=== PATIENT | female | born 1950 | race Caucasian/White ===

== ENCOUNTER 2017-02-10 09:55 | Inpatient (IN) | payer MEDICARE, OTHER ==
[2017-02-10 11:02] LABS: Hematocrit 45 % (35-47); Hemoglobin 14.7 g/dl (12.0-16.0); Mean Corpuscular HGB Conc 33 g/dl (31-36); Mean Corpuscular Hemoglobin 30 pg (27-31); Mean Corpuscular Volume 92 fL (80-97); Mean Platelet Volume 8 um3 (7.4-10.4); Red Blood Count 4.87 10^6/ul (4.0-5.4); Red Cell Distribution Width 13 % (10.5-15); White Blood Count 14.6 10^3/ul (3.5-10.8)
[2017-02-10 11:18] LABS: Albumin 4.6 g/dL (3.2-5.2); BUN/Creatinine Ratio 19.5 (8-20); C Reactive Protein 2.24 mg/L (< 5.00); Calcium 10.4 mg/dL (8.6-10.3); EGFR African American 95.9 (>60); EGFR Non-African American 74.5 (>60); Globulin 3.9 g/dL (2-4); Magnesium 1.9 mg/dL (1.9-2.7); Total Bilirubin 0.6 mg/dL (0.2-1.0); Total Protein 8.5 g/dL (6.4-8.9)
--- NOTE | 2017-02-10 11:21 | RAD ---
HISTORY: Back pain, vomiting COMPARISONS: February 06, 2010 VIEWS:1: Single frontal portable view of the chest at 10:55 AM. The right costophrenic angle is partially cut off. FINDINGS: LINES AND TUBES: None. CARDIOMEDIASTINAL SILHOUETTE: The cardiomediastinal silhouette is normal for portable technique. PLEURA: The costophrenic angles are sharp. No pleural abnormalities are noted. LUNG PARENCHYMA: The lungs are clear. ABDOMEN: The upper abdomen is clear. There is no subphrenic gas. BONES AND SOFT TISSUES: No bone or soft tissue abnormalities are noted. IMPRESSION: NO ACTIVE CARDIOPULMONARY DISEASE.
[2017-02-10] MEDS: NS 0.9% 1000 ML* 1,000 ML IV SCH ×2 (11:23→16:12)
[2017-02-10] MEDS ORDERED: Ondansetron INJ* 2 MG/ML VIAL IV ONE ×2 (11:25→12:15)
[2017-02-10] MEDS ORDERED: NS 0.9% 1000 ML* 2,000 ML IV ONE (11:25)
[2017-02-10] MEDS ORDERED: Diltiazem IV* 5 MG/ML 5 ML VIAL (for loading dose/IV Push) (25 MG) IV SLOW PU ONE ×2 (11:28→13:45)
[2017-02-10] MEDS ORDERED: Morphine INJ* 4 MG/ML 1 ML SYRINGE IV ONE (11:36)
[2017-02-10] MEDS ORDERED: Iohexol 300* (CONTRAST) 10 ML SDV IV ONE (11:41)
[2017-02-10 11:49] LABS: TSH (Thyroid Stimulating Horm) 0.51 mcIU/mL (0.34-5.60)
[2017-02-10 12:57] LABS: Urine Bacteria Absent (Absent); Urine Bilirubin Negative (Negative); Urine Glucose 1+(50 mg/dL) (Negative); Urine Nitrite Negative (Negative)
--- NOTE | 2017-02-10 13:18 | RAD ---
INDICATION: Abdominal and back pain. History of cholelithiasis. Vomiting. COMPARISON: Right upper quadrant sonogram February 28, 2014 TECHNIQUE: Axial source images were obtained from the hemidiaphragms to the symphysis pubis following administration of oral and intravenous contrast. 80 mL Omnipaque 300 was utilized. Coronal and sagittal reconstructed images were acquired. Lung bases: The lung bases are clear. Liver: The liver is normal in size. There are no masses. There is no ductal dilatation. Gallbladder: The gallbladder wall appears mildly edematous and there is a small amount pericholecystic fluid. There are multiple gallstones with one gallstone impacted in the neck of the gallbladder. Spleen: The spleen is normal in size. There are no masses. Pancreas: There is no focal pancreatic mass or ductal dilatation. Adrenal glands: There is no evidence of adrenal mass. Kidneys: The kidneys are normal in size and position. There are prompt nephrograms and there is prompt excretion bilaterally. There are no renal parenchymal masses. There is no evidence of nephrolithiasis. Adenopathy: There is no evidence of adenopathy by size criteria. Fluid collections: There are no free or localized fluid collections. Vessels:There are no significant atherosclerotic changes involving the aorta. There is no focal aneurysm. The iliac vessels are normal in caliber. The IVC appears normal. GI tract: There are no acute CT bowel findings. There is no obstruction. The stomach and small bowel appear normal. The lower GI tract is normal. The cecum, ileocecal valve, and terminal ileum appear normal. The appendix is visualized and appear normal. Pelvic organs: The uterus and adnexa appear normal Bladder: There are no bladder masses. Abdominal and pelvic soft tissues: The extraperitoneal abdominal and pelvic soft tissues appear normal.. Osseous structures: There are no acute osseous findings. There is spondylitic change most prominent about the thoracolumbar junction. There is facet overgrowth at L5-S1. Other: None IMPRESSION: 1. Cholelithiasis with CT findings suggestive of mild acute cholecystitis. One of the calculi appears impacted in the neck. 2. Minor degenerative change of the thoracolumbar and lower lumbar spine
[2017-02-10] MEDS ORDERED: Diltiazem DRIP* 100 MG/100 ML ADDV.BAG IVPB ONE (13:40)
[2017-02-10] MEDS ORDERED: Diltiazem DRIP* 100 MG/100 ML ADDV.BAG IVPB SCH (13:45)
[2017-02-10] MEDS ORDERED: Albuterol 2.5 MG/3 ML NEB.SOL* (0.083%) INH PRN (13:46)
[2017-02-10] MEDS ORDERED: Heparin DRIP 25,000 UNITS(*) 25,000 UNITS/500 ML BAG IVPB SCH (14:00)
[2017-02-10] MEDS ORDERED: Heparin VIAL(*) 5000 UNITS/ML VIAL (FIVE THOUSAND) IV SCH (14:00)
[2017-02-10] MEDS: Morphine INJ* 4 MG/ML 1 ML SYRINGE IV PRN (14:07)
[2017-02-10] MEDS: Ondansetron INJ* 2 MG/ML VIAL IV PRN (14:08)
[2017-02-10] MEDS: Piperac/Tazob 3.375 gm in NS* 3.375 GM/100 ML BAG IVPB SCH ×2 (14:27→22:31)
--- NOTE | 2017-02-10 15:03 | ED ---
Layla Duke Auryana, scribed for Elijah Cano MD on 02/10/17 at 1148 . Back Pain - HPI Summary HPI Summary: 66 year old female presents with severe back pain starting last night at 09:00 PM worse since 12:30 AM. She states the back pain was a 9/10 and then has nausea and vomiting. The back pain is located in the middle of the back and radiates up and out- currently 8.5/10. She states that she also has chills - patient reports normal, loose stools and arrhythmias (140's). She denies any fevers (fever on arrival to ED), chest pain, SOB, or calf pain/edema. 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 FHx of CHF. PMHx is significant for asthma, arrhythmia, Sjogrens disease, inguinal hernia, and D&C. No PMHx of appendectomy and cholecystectomy. - History of Current Complaint Chief Complaint: EDBackInjuryPain Stated Complaint: BACK PAIN/VOMITING Time Seen by Provider: 02/10/17 10:35 Hx Obtained From: Patient Onset/Duration: Sudden Onset - 12:30 of vomiting, Gradual Onset - of severe back pain, Still Present, Worse Since - 12:30 Onset/Duration: Started Hours Ago - started last night at 09:00 PM Timing: Constant Back Pain Location: Is Discrete @ - mid back Severity Initially: Moderate Severity Currently: Moderate Pain Intensity: 8 Pain Scale Used: 0-10 Numeric Associated Signs And Symptoms: Positive: Fever, Other - vomiting/nausea, loose stools, arrythmias - Allergies/Home Medications Allergies/Adverse Reactions: Allergies Allergy/AdvReac Type Severity Reaction Status Date / Time No Known Allergies Allergy Verified 01/19/14 21:57 PMH/Surg Hx/FS Hx/Imm Hx Respiratory History: Reports: Hx Asthma Musculoskeletal History: Denies: Hx Osteoporosis - Surgical History Surgery Procedure, Year, and Place: Hernia repair as a child. Tonsils and adenoids. D+C Infectious Disease History: No Infectious Disease History: Reports: Traveled Outside the [place] in Last 30 Days - [place] - Family History Known Family History: Positive: Cardiac Disease, Hypertension, Other - CHF - Social History Occupation: Retired Lives: With Family Alcohol Use: Daily Alcohol Amount: glass wine Substance Use Type: Reports: None Smoking Status (MU): Never Smoked Tobacco Review of Systems Positive: Fever Eyes: Negative ENT: Negative Positive: Palpitations - arrythmias. Negative: Chest Pain Respiratory: Negative Negative: Shortness Of Breath Positive: Vomiting, Diarrhea - loose stools, Nausea Genitourinary: Negative Positive: Other - back pain Skin: Negative Neurological: Negative Psychological: Normal All Other Systems Reviewed And Are Negative: Yes Physical Exam Triage Information Reviewed: Yes Vital Signs On Initial Exam: Initial Vitals Temp Pulse Resp BP Pulse Ox 100.0 F 60 18 120/63 100 02/10/17 10:11 02/10/17 10:11 02/10/17 10:11 02/10/17 10:11 02/10/17 10:11 Vital Signs Reviewed: Yes Appearance: Positive: Well-Appearing, Pain Distress - mild Skin: Positive: Warm, Skin Color Reflects Adequate Perfusion, Dry Head/Face: Positive: Normal Head/Face Inspection Eyes: Positive: EOMI, TOMAS ENT: Positive: Normal ENT inspection Neck: Positive: Supple, Nontender Respiratory/Lung Sounds: Positive: Clear to Auscultation, Breath Sounds Present Cardiovascular: Positive: Tachycardia - irregularly irregular Abdomen Description: Positive: Soft, Other: - minimal tenderness in the upper ABD Bowel Sounds: Positive: Present Musculoskeletal: Positive: Normal, Strength/ROM Intact, Other - no tenderness at the mid back to palpation Neurological: Positive: Normal, Sensory/Motor Intact, Alert, Oriented to Person Place, Time Psychiatric: Positive: Normal, Affect/Mood Appropriate - [place] Coma Scale Coma Scale Total: 15 Diagnostics - Vital Signs Vital Signs Temp Pulse Resp BP Pulse Ox 02/10/17 11:07 145 20 169/70 100 02/10/17 11:00 75 18 170/87 98 02/10/17 10:59 73 22 178/145 99 02/10/17 10:35 84 100 02/10/17 10:33 160/79 02/10/17 10:11 100.0 F 63 18 120/63 100 - Laboratory Lab Results: Lab Results 02/10/17 02/10/17 02/10/17 Range/Units 10:45 10:45 10:45 WBC 14.6 H (3.5-10.8) 10^3/ul RBC 4.87 (4.0-5.4) 10^6/ul Hgb 14.7 (12.0-16.0) g/dl Hct 45 (35-47) % MCV 92 (80-97) fL MCH 30 (27-31) pg MCHC 33 (31-36) g/dl RDW 13 (10.5-15) % Plt Count 263 (150-450) 10^3/ul MPV 8 (7.4-10.4) um3 Neut % (Auto) 93.1 H (38-83) % Lymph % (Auto) 4.0 L (25-47) % [place] % (Auto) 2.6 (1-9) % Eos % (Auto) 0.1 (0-6) % Baso % (Auto) 0.2 (0-2) % Absolute Neuts (auto) 13.6 H (1.5-7.7) 10^3/ul Absolute Lymphs (auto) 0.6 L (1.0-4.8) 10^3/ul Absolute Monos (auto) 0.4 (0-0.8) 10^3/ul Absolute Eos (auto) 0 (0-0.6) 10^3/ul Absolute Basos (auto) 0 (0-0.2) 10^3/ul Absolute Nucleated RBC 0 10^3/ul Nucleated RBC % 0 INR (Anticoag Therapy) 0.88 L (0.89-1.11) APTT 32.1 (26.0-36.3) seconds D-Dimer, Quantitative < 200 (Less Than 230) ng/mL Sodium 134 (133-145) mmol/L Potassium 4.0 (3.5-5.0) mmol/L Chloride 98 L (101-111) mmol/L Carbon Dioxide 22 (22-32) mmol/L Anion Gap 14 H (2-11) mmol/L BUN 15 (6-24) mg/dL Creatinine 0.77 (0.51-0.95) mg/dL Est GFR ( Amer) 95.9 (>60) Est GFR (Non-Af Amer) 74.5 (>60) BUN/Creatinine Ratio 19.5 (8-20) Glucose 131 H (70-100) mg/dL Calcium 10.4 H (8.6-10.3) mg/dL Magnesium 1.9 (1.9-2.7) mg/dL Total Bilirubin 0.60 (0.2-1.0) mg/dL AST 25 (13-39) U/L ALT 25 (7-52) U/L Alkaline Phosphatase 73 (34-104) U/L Total Creatine Kinase 56 (10-223) U/L CK-MB (CK-2) 2.3 (0.6-6.3) ng/mL Troponin I 0.00 (<0.04) ng/mL C-Reactive Protein 2.24 (< 5.00) mg/L B-Natriuretic Peptide ( - 100) pg/mL Total Protein 8.5 (6.4-8.9) g/dL Albumin 4.6 (3.2-5.2) g/dL Globulin 3.9 (2-4) g/dL Albumin/Globulin Ratio 1.2 (1-3) Lipase 23 (11.0-82.0) U/L TSH Pending 02/10/17 Range/Units 10:45 WBC (3.5-10.8) 10^3/ul RBC (4.0-5.4) 10^6/ul Hgb (12.0-16.0) g/dl Hct (35-47) % MCV (80-97) fL MCH (27-31) pg MCHC (31-36) g/dl RDW (10.5-15) % Plt Count (150-450) 10^3/ul MPV (7.4-10.4) um3 Neut % (Auto) (38-83) % Lymph % (Auto) (25-47) % [place] % (Auto) (1-9) % Eos % (Auto) (0-6) % Baso % (Auto) (0-2) % Absolute Neuts (auto) (1.5-7.7) 10^3/ul Absolute Lymphs (auto) (1.0-4.8) 10^3/ul Absolute Monos (auto) (0-0.8) 10^3/ul Absolute Eos (auto) (0-0.6) 10^3/ul Absolute Basos (auto) (0-0.2) 10^3/ul Absolute Nucleated RBC 10^3/ul Nucleated RBC % INR (Anticoag Therapy) (0.89-1.11) APTT (26.0-36.3) seconds D-Dimer, Quantitative (Less Than 230) ng/mL Sodium (133-145) mmol/L Potassium (3.5-5.0) mmol/L Chloride (101-111) mmol/L Carbon Dioxide (22-32) mmol/L Anion Gap (2-11) mmol/L BUN (6-24) mg/dL Creatinine (0.51-0.95) mg/dL Est GFR ( Amer) (>60) Est GFR (Non-Af Amer) (>60) BUN/Creatinine Ratio (8-20) Glucose (70-100) mg/dL Calcium (8.6-10.3) mg/dL Magnesium (1.9-2.7) mg/dL Total Bilirubin (0.2-1.0) mg/dL AST (13-39) U/L ALT (7-52) U/L Alkaline Phosphatase (34-104) U/L Total Creatine Kinase (10-223) U/L CK-MB (CK-2) (0.6-6.3) ng/mL Troponin I (<0.04) ng/mL C-Reactive Protein (< 5.00) mg/L B-Natriuretic Peptide 63 ( - 100) pg/mL Total Protein (6.4-8.9) g/dL Albumin (3.2-5.2) g/dL Globulin (2-4) g/dL Albumin/Globulin Ratio (1-3) Lipase (11.0-82.0) U/L TSH Result Diagrams: 02/10/17 10:45 02/10/17 10:45 Lab Statement: Any lab studies that have been ordered have been reviewed, and results considered in the medical decision making process. - Radiology CXR Xray Interpretation: No Acute Changes Radiology Interpretation Completed By: Radiologist - CT ABD/PEL CT Interpretation: Positive (See Comments) - IMPRESSION: 1. Cholelithiasis with CT findings suggestive of mild acute cholecystitis. One of the calculi appears impacted in the neck. 2. Minor degenerative change of the thoracolumbar and lower lumbar spine CT Interpretation Completed By: Radiologist - EKG 10:26 EKG Interpretation: rapid a-fib @ 138 BPM, diffuse depressed ST segment Back Pain Course/Dx - Course Assessment/Plan: ADMIT HOSPITALIST STABLE. - Diagnoses Provider Diagnoses: Rapid atrial fibrillation, Abdominal pain, Back pain, Cholecystitis - Provider Notifications Discussed Care of Patient With: Dr. Dickens Time Discussed With Above Provider: 12:55 - agrees to admit - Critical Care Time Critical Care Time: 30-74 min Discharge - Discharge Plan Condition: Stable Disposition: ADMITTED TO [facility] documentation as recorded by the Layla ramos Auryana accurately reflects the service I personally performed and the decisions made by me, Elijah Cano MD.
--- NOTE | 2017-02-10 15:24 | HP ---
HISTORY AND PHYSICAL:* ADDENDUM: Ms. De La Torre is a 66-year-old female with history of asthma, who presented with nausea, vomiting, and abdominal pain. The patient was noted to be in atrial fibrillation with rapid ventricular response. Also her CT shows cholecystitis with an impacted gallbladder neck stone. The patient is going to be placed in the intensive care unit for further monitoring and treatment of her atrial fibrillation. Surgery is also going to be asked to assist with further management of the patient's cholecystitis and impacted gallbladder neck stone. For further details of the patient's presentation and plan, please see history and physical dictated by Jose Antonio Mejia on 02/10/17, with which I agree. [id number]/[facility] #: [id number] MTDD
[2017-02-10] MEDS ORDERED: PROCHLORPERAZINE INJ 5 MG/ML 2 ML VIAL ONE (15:39)
--- NOTE | 2017-02-10 16:00 | CONSULT ---
Subjective Date of Service: 02/10/17 Interval History: Date of admission and consult 02/10/[address] Grubbs Service: Hospitalist CC: Back pain, palpitations, vomiting Reason for consult: Atrial fibrillation in setting of cholecystitis GABRIELA De La Torre is a 66 year old woman admitted with with back pain starting last night associated with vomiting multiple times She started with palpitations this morning and was found with rapid atrial fibrillation symptomatic starting this morning. This is in the setting of cholecystitis. She had chills without fever. She denies any prior similar episodes. She denies any history of CHF, HTN, DM, CVA/TIA or vascular disease. She denies any prior arrhythmias. Baseline patient walks briskly most day of the week and there is no chest discomfort or dyspnea. No edema, orthopnea or recent syncope. PAST MEDICAL HISTORY: Significant for: 1. Asthma. 2. Sjogren's. 3. Raynaud's. PAST SURGICAL HISTORY: 1. She has had tonsillectomy. 2. Hernia repair. 3. D and C. ALLERGIES TO MEDICATIONS: Include no known drug allergies. FAMILY HISTORY: Mother had a history of cardiac arrhythmia and oral cancer. Her father at age 98 of CHF. SOCIAL HISTORY: She does not smoke. Rarely drinks alcohol. She is . Surrogate decision maker is her , Bipin who is present at bedside. Medications Active Medications: Acetaminophen (Tylenol Tab*) 650 mg PO Q4H PRN PRN Reason: FEVER/PAIN Albuterol (Ventolin 2.5 Mg/3 Ml Neb.[place]*) 2.5 mg INH Q2H PRN PRN Reason: SOB/WHEEZING Heparin Sodium (Porcine) (Heparin Vial(*)) 0 units IV .PER PROTOCOL INOCENTE PRN Reason: Protocol Sodium Chloride (Ns 0.9% 1000 Ml*) 1,000 mls @ 150 mls/hr IV PER RATE [facility] Last Admin: 02/10/17 11:23 Dose: 150 mls/hr Sodium Chloride (Ns 0.9% 1000 Ml*) 1,000 mls @ 125 mls/hr IV PER RATE [facility] Piperacillin Sod/Tazobactam Sod (Zosyn 3.375 Gm In Ns Premix*) 3.375 gm in 100 mls @ 25 mls/hr IVPB Q8H [facility] Last Admin: 02/10/17 14:27 Dose: 25 mls/hr Diltiazem HCl (Cardizem Iv Advan*) 100 mg in 100 mls @ 5 mls/hr IVPB DAILY INOCENTE Heparin Sodium/Dextrose (Heparin Drip 25,000 Units(*)) 25,000 units in 500 mls @ 0 mls/hr IVPB .PER RATE INOCENTE; Per Protocol PRN Reason: Protocol Mometasone Furoate (Asmanex 220 Mcg Mdi *) 1 puff INH DAILY INOCENTE PRN Reason: Protocol Morphine Sulfate (Morphine Inj (Syringe)*) 4 mg IV Q4H PRN PRN Reason: PAIN Last Admin: 02/10/17 14:07 Dose: 4 mg Ondansetron HCl (Zofran Inj*) 4 mg IV Q6H PRN PRN Reason: NAUSEA Last Admin: 02/10/17 14:08 Dose: 4 mg Prochlorperazine Edisylate (Compazine Inj*) 5 mg IV Q6H PRN PRN Reason: NAUSEA/VOMITING Salmeterol Xinafoate (Serevent Diskus (Nf)) 1 puff INH DAILY INOCENTE PRN Reason: Protocol Home Medications: Mometasone 220 MCG MDI * [Asmanex (NF)] 220 mcg INH DAILY 01/19/14 [History Confirmed 02/10/17] Salmeterol Xinafoate [Serevent Diskus] 50 mcg PO DAILY 01/19/14 [History Confirmed 02/10/17] Review of Systems - Review of Systems Constitutional Symptoms: Negative: Weight Gain, Weight Loss, Weakness, Fatigue, Fever, Night Sweats Dermatology: Negative: Rash, Skin Lesions HEENT: Negative: Change in Hearing, Vertigo, Dental Problems Eyes: Negative: Change in Vision, Double Vision, Eye Pain Thyroid: Positive: Palpitations Negative: Goiter, Thyroid Nodule, Cold Intolerance, Heat Intolerance, Sweatiness, Tremor, Frequent Defecation, Constipation, Primary Hypothyroidism, Primary Hyperthyroidism Pulmonary: Negative: Cough, Sputum, Hemoptysis, Wheezing, Respiratory Distress, Shortness of Breath, COPD, Asthma, Exercise Intolerance Cardiology: Positive: Palpitations Negative: Normal, Chest Pain, Shortness of Breath, Swelling of Ankles, Peripheral Vascular Dis, Edema, Faintness, Syncope, Claudication, Paroxysmal Nocturnal Dyspnea, Orthopnea Gastroenterology: Positive: Abdominal Pain, Nausea, Vomiting Negative: Anorexia, Indigestion, Difficulty Swallowing, Heartburn, Constipation, Diarrhea, Haematemesis, Melena Genital - Urinary: Negative: Dysuria, Hematuria Musculoskeletal: Negative: Joint Pain, Joint Stiffness, Arthritis, Osteoporosis Endocrinology: Negative: Thyroid Problems, Hyperglycemia, Hypoglycemia, Diabetic Foot Ulcers , Calluses, Pituitary Disease Hematologic/Lymphatic: Negative: Anemia, Easy Brusing, Hx Leukemia, Hx Lymphoma, Use of Anticoagulant, Use of Antiplatelet Drugs Neurology: Negative: Diplopia, Dizziness, Change in Balancing, Change in Coordination, Change in Memory, Change in Speech, Change in Sphincter Function Psychiatry: Negative: Depression, Anxiety, Sexual Dysfunction Allergic/Immunologic: Negative: Hx Anaphylaxis, Hx Angioedema, Hx Environmental Allergies, Hx Seasonal Allergies Review of Systems Statement: All other review of systems negative, unless stated above. Objective Vital Signs: Temp Pulse Resp BP Pulse Ox 100.8 F 117 16 135/73 93 02/10/17 15:23 02/10/17 15:23 02/10/17 15:23 02/10/17 15:23 02/10/17 15:23 Appearance: appears in mild pain, not toxic Ears/Nose/Mouth/Throat: Clear Oropharnyx, Mucous Membranes Moist Neck: Trachea Midline Respiratory: Symmetrical Chest Expansion and Respiratory Effort, Clear to Auscultation Cardiovascular: No Edema, - - irregularly irregular, no significant murmur Abdominal: NL Sounds; No Tenderness; No Distention Extremities: No Edema, No Clubbing, Cyanosis Skin: No Rash or Ulcers Neurological: Alert and Oriented x 3 Laboratory Results: 02/10/17 10:45 02/10/17 10:45 INR (Anticoag Therapy) 0.88 (0.89-1.11) L 02/10/17 10:45 APTT 32.1 seconds (26.0-36.3) 02/10/17 10:45 Total Bilirubin 0.60 mg/dL (0.2-1.0) 02/10/17 10:45 AST 25 U/L (13-39) 02/10/17 10:45 ALT 25 U/L (7-52) 02/10/17 10:45 Alkaline Phosphatase 73 U/L (34-104) 02/10/17 10:45 CK-MB (CK-2) 2.3 ng/mL (0.6-6.3) 02/10/17 10:45 B-Natriuretic Peptide 63 pg/mL (-100) 02/10/17 10:45 Total Protein 8.5 g/dL (6.4-8.9) 02/10/17 10:45 Albumin 4.6 g/dL (3.2-5.2) 02/10/17 10:45 Globulin 3.9 g/dL (2-4) 02/10/17 10:45 Albumin/Globulin Ratio 1.2 (1-3) 02/10/17 10:45 TSH 0.51 mcIU/mL (0.34-5.60) 02/10/17 10:45 02/10/17 10:45 Troponin I 0.00 Diagnostic Imaging: CT 02/10/2017 abd/pelvix: cholelithasis with mild cholecystitis CXR 02/10/2017: No active cardiopulmonary disease EKG Data: EKG : NSR, normal EKG EKG 02/10/2017: Rapid atrial fibrillation 140 bpm with minor rate related st/t changes Assessment/Plan Eva De La Torre is a 66-year-old woman who presents with new onset atrial fibrillation symptomatic less than 24 hours in the setting of acute cholecystitis. TTE with hyperdynamic LVEF, normal LA size. Did not convert with diltiazem gtt or total 300 mg IV amiodarone. No CHF, [place], severe valve disease or malignant arrhythmia. > 4 mets functional capacity without symptoms at baseline. - I suggested external electrical cardioversion so we would not have to do a MI or use anticoagulation (< 24 hours, provoked Afib). She declined. - For now would continue diltiazem gtt and adjust as needed for rate control - Continue heparin gtt, stop 6 hours prior to surgery, if still in atrial fibrillation after surgery would restart beparin gtt whenever bleeding risk minimized. - Patient is not high risk for cardiovascular complications for cholecystectomy and can proceed without further cardiac evaluation warranted. We did discuss and she expressed understanding that there is some inherent risk for cardiovascular complications related to anesthesia and surgery and she accepts this risk in favor of the expected benefit the surgery will provide. was present at bedside and expressed understanding as well. - Post-op will need rate control (vs. rhythm control) and oral anticoagulation addressed Thank you for allowing me to participate in the cardiovascular care of this patient. Please do not hesitate to contact me with questions or concerns.
[2017-02-10] MEDS: PROCHLORPERAZINE INJ 5 MG/ML 2 ML VIAL IV PRN (16:12)
[2017-02-10] MEDS ORDERED: Amiodarone 150 MG IVPREMIX* 150 MG/100 ML BAG IV ONE ×3 (16:28→17:45)
--- NOTE | 2017-02-10 17:09 | HP ---
ATTENDING PROVIDER'S ADDENDUM NOW INCLUDED ON THIS REPORT HISTORY AND PHYSICAL: DATE OF ADMISSION: 02/10/17 PRIMARY CARE PROVIDER: Dr. Grubbs. ATTENDING PHYSICIAN WHILE IN THE HOSPITAL: Dr. Viviana Dickens * (report dictated by Jose Antonio Mejia NP). CONSULTING CARE NURSE RN: Dr. Bryson. CONSULTING SURGEON: Dr. Fung. CHIEF COMPLAINT: Sudden onset of back pain. HISTORY OF PRESENT ILLNESS: Ms. De La Torre is a 66-year-old female patient that came into the ER today. She states around midnight last night she started developing pain particularly in her back on the right side with associated nausea and vomiting. She states she vomited at least a dozen times throughout the night. She has dry heaving. She started feeling palpitations today when coming into the ER, that is what she had told me. She had no palpitations last night or chest pain or shortness of breath, but she was concerned because the pain was constant, unrelenting. She states there was no association of the pain with eating food and she had no alleviating factors. She did have chills last night, but no fevers. She was concerned and decided to come into the ER, was evaluated, ultimately was found to be in AFib when she was hooked up to the monitors down here. Also found to have what appear to be mild cholecystitis and the stone in the neck of the gallbladder. The patient was evaluated in ED because of these new findings. We were asked to evaluate for admission. PAST MEDICAL HISTORY: Significant for: 1. Asthma. 2. Sjogren's. 3. Raynaud's. PAST SURGICAL HISTORY: 1. She has had tonsillectomy. 2. Hernia repair. 3. D and C. HOME MEDICATIONS: According to the list that she provided us include: 1. Asmanex 220 mcg inhaled daily. 2. Serevent 50 mcg p.o. daily. ALLERGIES TO MEDICATIONS: Include no known drug allergies. FAMILY HISTORY: Mother had a history of cardiac arrhythmia and oral cancer. Her father at age 98 of CHF. SOCIAL HISTORY: She does not smoke. Rarely drinks alcohol. She is . Surrogate decision maker is her , Bipin. REVIEW OF SYSTEMS: There is no documented fever. She did admit to having chills. She denied having any double vision. There was no ear discharge. She denied having any rhinorrhea. There was no sore throat, no thyroid enlargement. Denied having any chest pain. The was palpitations. The patient was no shortness of breath. There was no abdominal pain, but she does admit to having right-sided back pain. There was nausea, vomiting. No dysuria, no frequency, no loss of consciousness, no pruritus, no skin ulcerations. Review of 14 systems completed, all others negative. PHYSICAL EXAMINATION GENERAL: At this time, Ms. De La Torre is a 66-year-old female patient, she is sitting in the ER stretcher. She does not appear to be in any acute distress. VITAL SIGNS: Blood pressure 143/73, pulse of 121, respirations 24, O2 sat 95%, temperature 100. HEENT: Head is atraumatic and normocephalic. Eyes: EOMs are intact. Sclerae were anicteric and not pale. Throat: Oral mucosa appeared to be moist. No oropharyngeal erythema. NECK: Supple. LUNGS: Clear to auscultation. No wheezes, rales, or rhonchi. HEART: Sounds S1 and S2, irregularly irregular rate. No murmurs, rubs, or gallops. ABDOMEN: Soft. Bowel sounds are present. She did have tenderness in her right upper quadrant. EXTREMITIES: Pulses were 2+ throughout. She is able to move all 4 extremities with 5/5 strength. NEUROLOGIC: The patient is awake, she is alert, she is oriented x3. Tongue is midline. Cider Press Operator were equal. She had no gross focal deficits. SKIN: Intact. LABORATORY DATA: Labs today revealed WBC of 14.6, RBC of 4.87, hemoglobin 14.7 , hematocrit of 45, and platelet count of 263 . INR 0.88. PTT 32.1. D-dimer less than 200. Sodium is 134, potassium 4.0, chloride of 98, bicarbonate 22, BUN 15, creatinine 0.77, glucose 131, lactate 2.1, calcium 10.4, magnesium 1.9. Total bilirubin 0.6, AST 25, ALT 25, alk phos 73. CK 56. CK-MB 2.3. Troponin 0. CRP at 2.24. Albumin 4.3. TSH is normal. Lipase is normal. Urine showed 1+ protein, 2+ ketones, 1+ blood, 2+ RBC, absent bacteria. She had an abdominal and pelvis CT, which showed cholelithiasis with CT findings suggestive of mild acute cholecystitis, one of the calculi appeared impacted in the neck. Minor degenerative changes of the thoracolumbar and lower lumbar spine. Chest x-ray showed no active cardiopulmonary disease. There is an EKG obtained today, she does not have a previous for comparison but it shows atrial fibrillation with diffuse ST depression, rate of 138. Old medical records reviewed. ASSESSMENT/PLAN: Ms. De La Torre is a 66-year-old female patient coming into the ER today with complaints of right-sided back pain and atrial fibrillation and palpitations, was found to be in atrial fibrillation with rapid ventricular rate and also found to be have mild cholecystitis. She will be admitted under inpatient status for: 1. Acute cholecystitis. At this point, I did touch base with Surgery who will evaluate the patient . The plan is for IV antibiotics and to make the patient n.p.o. after midnight for possible OR tomorrow. I will get a cardiology evaluation because of the atrial fibrillation and clear liquid diet and NPO after midnight. We will hydrate the patient and get blood cultures. She had a mild fever, she is tender, so I think probably why she has the back discomfort. 2. Atrial fibrillation, this is a new onset. I will get touch base with Dr. Bryson. I am going to put her on heparin drip which can be held 6 hours before surgery and the order for this will be placed by Surgery to when to hold the medication. I will place her on diltiazem drip in the ICU for rate control. I have ordered an echo and I will repeat an EKG in the morning. I suspected that diffuse ST depression is probably related from the atrial fibrillation, so we will continue to follow. 3. Asthma. Continues p.r.n. albuterol and continue her home meds. 4. Sjogren's and Raynaud's. Continues with her current medical regimen. 5. DVT prophylaxis. She will be on heparin drip. 6. Code status. Full code. 7. Fluids, electrolytes, and nutrition. Clear liquid diet and NPO after midnight. TIME SPENT: Time spent on the admission was 60 minutes, greater than half the time was spent [id number] with the patient obtaining my history of physical; other half time was spent going over the plan of care with the patient and implementing my plan of care. I did discuss the plan of care with my attending Dr. Dickens; she is in agreement. JOSE ANTONIO MEJIA NP ADDENDUM: Ms. De La Torre is a 66-year-old female with history of asthma, who presented with nausea, vomiting, and abdominal pain. The patient was noted to be in atrial fibrillation with rapid ventricular response. Also her CT shows cholecystitis with an impacted gallbladder neck stone. The patient is going to be placed in the intensive care unit for further monitoring and treatment of her atrial fibrillation. Surgery is also going to be asked to assist with further management of the patient's cholecystitis and impacted gallbladder neck stone. For further details of the patient's presentation and plan, please see history and physical dictated by Jose Antonio Mejia on 02/10/17, with which I agree. VIVIANA DICKENS MD CC: Dr. Grubbs; Dr. Bryson; Dr. Fung * [id number]/[facility]PS #: [id number]/CPS #: [id number] LETY
--- NOTE | 2017-02-10 17:12 | ECHO ---
Patient: CINDY ROSENBAUM [facility] Rec#: [id number] : 1950 Date: 02/10/2017 Age: 66y Height: 162.56 cm / 64.0 in Weight: 56.7 kg / 125.0 lbs Sex: F BSA: 1.6 Room#: ICU 3 Admit Date#: 02/10/2017 Type: Inpatient Referring: Jose Antonio Mejia NP Reading: Arnoldo Bryson DO Community Leader: Tana Carey RDCS,RDMS CC: Sam Grubbs MD Transthoracic Echocardiogram Indication: Afib BP: 143/73 HR: 104 Rhythm: A-Fib Indications Atrial Fibrillation Findings History: Asthma Technical Comments: The study quality is good. Completed 1625 Left Ventricle: The left ventricular chamber size is decreased. There is no left ventricular hypertrophy. The left ventricle appears hyperdynamic.with no segmental wall motion abnormalities noted. The estimated ejection fraction is greater than 65%. The assessment of diastolic function is non-diagnostic. Left Atrium: The left atrial chamber size is normal. Right Ventricle: The right ventricular chamber size and systolic function are within normal limits. Right Atrium: The right atrial cavity size is normal. Aortic Valve: The aortic valve is trileaflet. There is no evidence of aortic regurgitation. There is no evidence of aortic stenosis. Mitral Valve: The mitral valve leaflets are mildly thickened. There is a trace of mitral regurgitation. There is no evidence of mitral stenosis. Tricuspid Valve: The tricuspid valve leaflets are normal. There is mild to moderate tricuspid regurgitation. No pulmonary hypertension is noted. Pulmonic Valve: The pulmonic valve structure is not well visualized. There is no evidence of pulmonic regurgitation. There is no pulmonic stenosis. Pericardium: There is no significant pericardial effusion. Aorta: The ascending aorta is not well visualized. There is no dilatation of the aortic arch. The aortic root is normal in size. Pulmonary Artery: The main pulmonary artery is not well visualized. Venous: The inferior vena cava appears normal in size. There is an approximate 50% respiratory change in the inferior vena cava dimension. Conclusions Patient is in atrial fibrillation at time of examination The left ventricular chamber size is decreased. There is no left ventricular hypertrophy. The left ventricle appears hyperdynamic. The LV estimated ejection fraction is greater than 65%. The left atrial chamber size is normal. The right ventricular chamber size and systolic function are within normal limits. There is mild to moderate tricuspid regurgitation. No prior studies available for comparison at time of interpretation. Measurements Name Value Normal Range RVIDd (AP) 2D 2 cm (0.9 - 2.6) RAd ISD 4CH 3.7 cm (3.4 - 4.9) RA (A4C)W 3.1 cm (2.9 - 4.6) IVSd (2D) 0.9 cm (0.6 - 1) LVPWd (2D) 1 cm (0.6 - 1) LVIDd (2D) 2.9 cm (3.6 - 5.4) LVIDs (2D) 1.4 cm - LV FS (2D) 52 % (25 - 45) Aortic Annulus 2 cm (1.4 - 2.6) Ao root diameter (2D) 2.7 cm (2.1 - 3.5) Aortic arch 2.4 cm (1.8 - 3.4) LA dimension (AP) 2D 3.4 cm (2.3 - 3.8) LAd ISD 4CH 4.3 cm (2.9 - 5.3) LA ISD 4CH W 3.6 cm (2.5 - 4.5) Name Value Normal Range LA ESV SP 4CH (A/L) 26.74 ml - LA ESV SP 2CH (A/L) 53.71 ml - LA ESV BP (A/L) 42.47 ml - LA ESV BP (A/L) index 27 ml/m2 - LA ESV SP 4CH (MOD) 23.2 ml - LA ESV SP 2CH (MOD) 48.69 ml - Name Value Normal Range MV E-wave Vmax 1 m/sec - MV deceleration time 142.6 msec - LV lateral e' Vmax 0.11 m/sec - LV E:e' lateral ratio 9 ratio - Name Value Normal Range AV Vmax 1 m/sec - AV peak gradient 4 mmHg - LVOT Vmax 0.8 m/sec - LVOT peak gradient 2.6 mmHg - Name Value Normal Range TR Vmax 2.3 m/sec - TR peak gradient 21 mmHg - RAP 3 mmHg - RVSP 24 mmHg - IVC diameter 2 cm - Name Value Normal Range PV Vmax 0.7 m/sec - PV peak gradient 2 mmHg -
--- NOTE | 2017-02-10 17:18 | PN ---
Progress Note - Progress Note Note: Brief Surgery Note: (full consult dictated) S: 66 yo female w/ Sjogrens w/ onset of back pain last pm assoc w/ N&V. Similar but more severe than episodes in past. O: tmax 100.8; afib w/ rate up to 142 (new) Heart: irreg irreg Lungs: clear Abd: soft; some right-sided guarding; mild tenderness RUQ; mildly pos Lau' s WBC 14.6; LFTs and lipase nl; lactate 2.1 CT: +GS w/ stone in the neck; edema and some pericholecystic fluid A: acute calculous cholecytitis; new onset afib P: on Zosyn; on Heparin gtt and rate control per cardiology; Dr. Bryson indicated that her ECHO was nl and that she could proceed to surgery. Case discussed w/ Dr. Fung (non acoustic operator) and then with Dr. Holliday who will likely do her laparoscopic cholecystectomy tomorrow a.m. Will hold Heparin after 0300.
[2017-02-10] MEDS: Acetaminophen TAB* 325 MG PO PRN (19:19)
[2017-02-10] MEDS ORDERED: Salmeterol DISKUS (NF) INH SCH (22:00)
[2017-02-10] MEDS ORDERED: Mometasone 220 MCG MDI INH SCH (22:00)
[2017-02-10] MEDS ORDERED: SEREVENT 50 MCG INH SCH (22:10)
--- NOTE | 2017-02-10 22:11 | CONS ---
CC: [facility]; Dr. Sam Grubbs SURGICAL CONSULT NOTE: DATE OF CONSULT: 02/10/17 ATTENDING SURGEON: Dr. Lul Fung. CHIEF COMPLAINT: Back pain with nausea, vomiting. HISTORY OF PRESENT ILLNESS: This is a 66-year-old generally healthy female with Sjogren's syndrome, who noted onset of back pain last night, which awakened her from sleep. It was similar to episodes that she had in the past, but this time was also associated with nausea and vomiting as well as chi lls. Pain was located in the right mid back. She acknowledges some discomfort in the abdomen, but has not been her major complaint. Previous workup in the past had included an ultrasound in 2013 sh owing cholelithiasis, but because of the atypical presentation, it was felt that her back pain was f rom another etiology. Early previous abdominal surgery was right inguinal herniorrhaphy at age 11. She denies dark urine with the current episode. There is a positive family history of gallbladder disease in her mother. PAST MEDICAL HISTORY: Sjogren's syndrome, asthma. PAST SURGICAL HISTORY: Right inguinal herniorrhaphy, tonsillectomy and adenoidectomy, and D and C. No reported surgical or anesthesia problems. CURRENT MEDICATIONS: 1. Serevent 50 mcg 1 puff daily. 2. Asmanex 220 mcg 1 inhalation daily. 3. Albuterol MDI p.r.n. 4. Baby aspirin once daily. 5. Flaxseed supplement daily. DRUG ALLERGIES: None known. FAMILY HISTORY: Positive for gallbladder disease, negative for anesthesia problems, bleeding, or cl otting disorders. SOCIAL HISTORY: The patient is . She and her just returned a few days ago from 2 we eks in [place]. She was well throughout her trip. She denies use of tobacco and on average drinks 1 drink every other day though did have a glass of wine daily while traveling in [place]. REVIEW OF SYSTEMS: General: No other acute recent illnesses other than described in the HPI. Her weight has been stable. HEENT: She does have dryness related to the Sjogren's. No additions. Car diovascular: She does admit to some past episodes of palpitations, but never had any workup for dana e. She denies history of chest pain or hypertension. Respiratory: Asthma. No recent exacerbation s. At present, no cough or shortness of breath. GI: As above per HPI. She did undergo colonoscop y approximately 10 years ago, more recently had stool test for occult blood with no interval problem s reported. : No problems reported. INTEGRITY MANAGER: She no longer has Pap smears done. She is due for he r annual breast exam and breast sonogram (she does not have mammograms). Endocrine: No diabetes or thyroid dysfunction. PHYSICAL EXAM: Height 5 feet 4 inches, weight 134 pounds. Temperature 100.8, blood pressure rangin g from 120 to 178/63 to 100, pulse ranging from 92 to 142, respirations ranging from 16 to 20. Gene ral: A well-nourished, somewhat thin female, in no acute distress. She is mildly somnolent. Skin: Warm and dry. No suspicious rashes or lesions. HEENT: Pupils equal, round, and reactive. EOMs intact. No conjunctival pallor or scleral icterus. Oropharynx: Mucous membranes are dry. Teeth i n good repair. No intraoral lesions. Neck: No lymphadenopathy, thyromegaly, or masses. Nodes: N o palpable cervical or supraclavicular lymphadenopathy. Lungs: Clear to auscultation. No rales or wheezes. Breasts: Not examined. Heart: Irregularly irregular rhythm consistent with known atrial fibrillation. No murmur appreciated. Abdomen: Well-healed right groin incision from prior inguin al herniorrhaphy. Abdomen is flat, nondistended. Bowel sounds are present. Abdomen is soft though with some guarding on the right. She has mild tenderness and a mildly positive Lau's sign in th e right upper quadrant. The remainder of the abdomen is soft and nontender. Back: No spinous proc ess or CVA tenderness. Extremities: No edema. Neurological: Grossly intact. DIAGNOSTIC STUDIES/LAB DATA: Of note, white blood cell count 14,600 with left shift, hemoglobin 14. 7. Her basic electrolytes and renal function are normal. Lactic acid is 2.1. CRP is 2.2. Liver fu nction tests and lipase are normal. CT scan is as described above. IMPRESSION: Acute calculus cholecystitis with new-onset atrial fibrillation. PLAN: The patient currently receiving IV Zosyn. She is on heparin drip, which will be stopped 6 ho urs prior to surgery. Per Cardiology, she is clear to proceed with surgery with rate control. DAVID BRISENO, JONES [id number]/[facility] #: [id number]
[2017-02-10] MEDS: MOMETASONE 220 MCG INH SCH (22:31)
[2017-02-10] MEDS: MDI INH SCH (22:31)
[2017-02-10] MEDS: SEREVENT 50 MCG INH SCH (22:48)
[2017-02-11] MEDS: Diltiazem TAB* 30 MG PO SCH ×4 (00:08→18:10)
[2017-02-11] MEDS: Ondansetron INJ* 2 MG/ML VIAL IV PRN (00:15)
[2017-02-11] MEDS: Morphine INJ* 4 MG/ML 1 ML SYRINGE IV PRN (00:15)
[2017-02-11] MEDS: NS 0.9% 1000 ML* 1,000 ML IV SCH ×3 (00:15→14:24)
[2017-02-11 06:12] LABS: Hematocrit 35 % (35-47); Hemoglobin 11.6 g/dl (12.0-16.0); Mean Corpuscular HGB Conc 33 g/dl (31-36); Mean Corpuscular Hemoglobin 30 pg (27-31); Mean Corpuscular Volume 91 fL (80-97); Mean Platelet Volume 8 um3 (7.4-10.4); Red Blood Count 3.88 10^6/ul (4.0-5.4); Red Cell Distribution Width 14 % (10.5-15); White Blood Count 16.9 10^3/ul (3.5-10.8)
[2017-02-11] MEDS: Piperac/Tazob 3.375 gm in NS* 3.375 GM/100 ML BAG IVPB SCH ×3 (06:17→22:32)
[2017-02-11 06:29] LABS: BUN/Creatinine Ratio 11.3 (8-20); Calcium 7.7 mg/dL (8.6-10.3); EGFR African American 105.3 (>60); EGFR Non-African American 81.9 (>60); Potassium 3.2 mmol/L (3.5-5.0)
[2017-02-11] MEDS ORDERED: Famotidine IV* 10 MG/ML 2 ML (20 mg) IV SLOW PU ONE (07:00)
[2017-02-11] MEDS: PROCHLORPERAZINE INJ 5 MG/ML 2 ML VIAL IV PRN (07:52)
[2017-02-11] MEDS ORDERED: KCL 20 MEQ/100 ML IVPREMIX* 20 MEQ/100 ML BAG IV ONE (08:18)
[2017-02-11] MEDS ORDERED: Bupivacaine 0.25% EPI 200,000* 30 ML SDV ONE (08:23)
[2017-02-11] MEDS ORDERED: Atracurium* 10 MG/ML 10 ML VIAL ONE (08:39)
[2017-02-11] MEDS ORDERED: fentaNYL* 50 MCG/ML 5 ML VIAL (250 MCG VIAL) ONE (08:39)
[2017-02-11] MEDS ORDERED: Midazolam* 1 MG/ML 5 ML VIAL (5 MG) ONE (08:39)
[2017-02-11] MEDS ORDERED: fentaNYL* 50 MCG/ML 2 ML VIAL (100 MCG VIAL) IV PRN (10:04)
[2017-02-11] MEDS ORDERED: PROCHLORPERAZINE INJ 5 MG/ML 2 ML VIAL IV PRN (10:04)
[2017-02-11] MEDS ORDERED: Morphine INJ* 10 MG/ML 1 ML SYRINGE IV PRN (10:04)
[2017-02-11] MEDS ORDERED: Diltiazem IV* 5 MG/ML 5 ML VIAL (for loading dose/IV Push) (25 MG) ONE (10:37)
[2017-02-11] MEDS ORDERED: Propofol* 10 MG/ML 20 ML BTL IV PUSH ONE (10:38)
[2017-02-11] MEDS ORDERED: Lidocaine 2% PF * 5 ML VIAL ONE ×2 (10:38→10:42)
[2017-02-11] MEDS ORDERED: Dexamethasone IV* 4 MG/ML 1 ML (4 MG) ONE (10:38)
[2017-02-11] MEDS ORDERED: Ondansetron INJ* 2 MG/ML VIAL ONE (10:38)
[2017-02-11] MEDS ORDERED: Flumazenil* 0.1 MG/ML 5 ML MDV ONE (11:02)
[2017-02-11] MEDS ORDERED: Phenylephrine INJ* 10 MG/ML 1 ML VIAL (10 MG) ONE (11:03)
[2017-02-11] MEDS ORDERED: Naloxone* 0.4 MG/ML 10 ML VIAL ONE (11:09)
--- NOTE | 2017-02-11 11:10 | SURGPN ---
Brief Operative Note - Surgery Procedures: Procedures OPERATIVE REPORT PRE-OP: Acute calculous cholecystitis POST-OP: Same PROCEDURE: Laparoscopic cholecystectomy SURGEON: MD Mg ANESTHESIA: General with local with DrMillicent [place] ASST: JONES Fair, Sanjeev Kline NP IVF: 800 cc crystalloid EBL: min SPECIMEN: Gallbladder DRAIN: none WOUND CLASS: three COMPLICATIONS: none TO PACU
[2017-02-11] MEDS ORDERED: oxyCODONE/Acetamin 5/325 MG* TAB PO PRN (11:13)
[2017-02-11] MEDS: MOMETASONE 220 MCG INH SCH (13:11)
[2017-02-11] MEDS: MDI INH SCH (13:11)
[2017-02-11] MEDS: SEREVENT 50 MCG INH SCH (13:11)
--- NOTE | 2017-02-11 14:03 | PN ---
Subjective Date of Service: 02/11/17 Interval History: Seen and examined this AM prior to surgery with at bedside Pain in right back present but improved with medicine No N/V, no appetite, no BMs Chemically cardioverted overnight tele: NSR Objective Active Medications: Acetaminophen (Tylenol Tab*) 650 mg PO Q4H PRN PRN Reason: FEVER/PAIN Last Admin: 02/10/17 19:19 Dose: 650 mg Albuterol (Ventolin 2.5 Mg/3 Ml Neb.[place]*) 2.5 mg INH Q2H PRN PRN Reason: SOB/WHEEZING Diltiazem HCl (Cardizem Tab*) 30 mg PO Q6HR INOCENTE Last Admin: 02/11/17 13:02 Dose: Not Given Fentanyl Citrate (Fentanyl*) 25 mcg IV Q5M PRN PRN Reason: PAIN - MODERATE Stop: 02/11/17 15:00 Heparin Sodium (Porcine) (Heparin Vial(*)) 5,000 units SUBCUT Q12HR INOCENTE Piperacillin Sod/Tazobactam Sod (Zosyn 3.375 Gm In Ns Premix*) 3.375 gm in 100 mls @ 25 mls/hr IVPB Q8H INOCENTE Last Admin: 02/11/17 06:17 Dose: 25 mls/hr Mometasone Furoate (Asmanex 220 Mcg Mdi *) 1 puff INH DAILY@1800 INOCENTE PRN Reason: Protocol Morphine Sulfate (Morphine Inj (Syringe)*) 4 mg IV Q4H PRN PRN Reason: PAIN Last Admin: 02/11/17 00:15 Dose: 4 mg Ondansetron HCl (Zofran Inj*) 4 mg IV Q6H PRN PRN Reason: NAUSEA Last Admin: 02/11/17 00:15 Dose: 4 mg Oxycodone/Acetaminophen (Percocet 5/325 Tab*) 1 tab PO Q6H PRN PRN Reason: PAIN Prochlorperazine Edisylate (Compazine Inj*) 5 mg IV Q6H PRN PRN Reason: NAUSEA/VOMITING Last Admin: 02/11/17 07:52 Dose: 5 mg Prochlorperazine Edisylate (Compazine Inj*) 2.5 mg IV ONCE PRN PRN Reason: NAUSEA/VOMITING Stop: 02/11/17 15:00 Salmeterol Xinafoate (Serevent Diskus (Nf)) 1 puff INH 1800 INOCENTE PRN Reason: Protocol Vital Signs 02/10/17 02/10/17 02/10/17 14:05 14:07 15:00 Temperature Pulse Rate 85 88 Respiratory 20 15 Rate Blood Pressure (mmHg) O2 Sat by Pulse 96 97 Oximetry 02/10/17 02/10/17 02/10/17 15:11 15:13 15:23 Temperature 100.8 F Pulse Rate 115 124 117 Respiratory 16 15 16 Rate Blood Pressure 127/69 135/73 (mmHg) O2 Sat by Pulse 95 96 93 Oximetry 02/10/17 02/10/17 02/10/17 15:30 15:45 16:00 Temperature 100.8 F Pulse Rate 97 84 Respiratory 18 20 Rate Blood Pressure 135/73 118/100 140/85 (mmHg) O2 Sat by Pulse 97 94 Oximetry 02/10/17 02/10/17 02/10/17 16:15 16:30 16:45 Temperature Pulse Rate 104 115 39 Respiratory 20 24 23 Rate Blood Pressure 132/75 130/111 114/63 (mmHg) O2 Sat by Pulse 99 100 92 Oximetry 02/10/17 02/10/17 02/10/17 17:00 17:15 17:30 Temperature Pulse Rate 102 94 Respiratory 18 13 Rate Blood Pressure 141/89 136/77 132/84 (mmHg) O2 Sat by Pulse 98 95 Oximetry 02/10/17 02/10/17 02/10/17 17:40 18:00 18:07 Temperature 101.1 F Pulse Rate 92 87 Respiratory 13 15 Rate Blood Pressure 121/76 (mmHg) O2 Sat by Pulse 96 96 Oximetry 02/10/17 02/10/17 02/10/17 18:15 18:30 18:45 Temperature Pulse Rate 91 95 104 Respiratory 15 15 14 Rate Blood Pressure 127/78 113/60 130/65 (mmHg) O2 Sat by Pulse 96 96 96 Oximetry 02/10/17 02/10/17 02/10/17 19:00 19:25 19:30 Temperature Pulse Rate 96 97 94 Respiratory 24 25 15 Rate Blood Pressure 116/64 118/73 (mmHg) O2 Sat by Pulse 97 95 94 Oximetry 02/10/17 02/10/17 02/10/17 19:45 20:00 20:24 Temperature 100.0 F Pulse Rate 86 95 104 Respiratory 15 16 21 Rate Blood Pressure 130/65 134/62 125/85 (mmHg) O2 Sat by Pulse 96 96 97 Oximetry 02/10/17 02/10/17 02/10/17 20:30 20:45 21:00 Temperature 100.0 F Pulse Rate 97 88 75 Respiratory 17 20 14 Rate Blood Pressure 95/68 118/88 129/66 (mmHg) O2 Sat by Pulse 99 98 92 Oximetry 02/10/17 02/10/17 02/10/17 21:15 21:30 21:45 Temperature Pulse Rate 77 79 83 Respiratory 12 14 14 Rate Blood Pressure 135/73 122/81 135/66 (mmHg) O2 Sat by Pulse 95 95 96 Oximetry 02/10/17 02/10/17 02/10/17 22:00 22:15 22:30 Temperature Pulse Rate 77 78 72 Respiratory 13 15 15 Rate Blood Pressure 138/68 133/67 126/64 (mmHg) O2 Sat by Pulse 97 97 93 Oximetry 02/10/17 02/10/17 02/10/17 22:45 23:00 23:08 Temperature Pulse Rate 78 79 78 Respiratory 12 11 13 Rate Blood Pressure 127/65 125/68 (mmHg) O2 Sat by Pulse 96 97 96 Oximetry 02/10/17 02/10/17 02/10/17 23:15 23:30 23:45 Temperature Pulse Rate 80 79 78 Respiratory 14 14 13 Rate Blood Pressure 131/68 124/66 132/64 (mmHg) O2 Sat by Pulse 96 97 97 Oximetry 02/11/17 02/11/17 02/11/17 00:00 00:15 01:00 Temperature 99.8 F 99.8 F Pulse Rate 82 75 Respiratory 14 24 13 Rate Blood Pressure (mmHg) O2 Sat by Pulse 98 92 Oximetry 02/11/17 02/11/17 02/11/17 01:03 01:30 02:00 Temperature Pulse Rate 76 74 76 Respiratory 13 13 13 Rate Blood Pressure 115/49 125/52 122/54 (mmHg) O2 Sat by Pulse 94 96 96 Oximetry 02/11/17 02/11/17 02/11/17 02:30 03:00 03:30 Temperature Pulse Rate 78 74 75 Respiratory 13 16 17 Rate Blood Pressure 121/56 125/58 124/60 (mmHg) O2 Sat by Pulse 97 96 96 Oximetry 02/11/17 02/11/1717 03:58 04:00 04:30 Temperature 99.7 F Pulse Rate 74 78 Respiratory 20 13 Rate Blood Pressure 128/62 (mmHg) O2 Sat by Pulse 96 98 Oximetry 02/11/17 02/11/17 02/11/17 05:00 05:30 06:00 Temperature Pulse Rate 74 73 82 Respiratory 13 12 13 Rate Blood Pressure 122/58 124/60 117/64 (mmHg) O2 Sat by Pulse 97 97 96 Oximetry 02/11/17 02/11/17 02/11/17 06:30 07:00 07:30 Temperature Pulse Rate 73 73 76 Respiratory 12 18 15 Rate Blood Pressure 111/59 122/61 119/60 (mmHg) O2 Sat by Pulse 98 94 99 Oximetry 02/11/17 02/11/17 02/11/17 07:59 08:00 08:30 Temperature 99.8 F Pulse Rate 78 79 Respiratory 17 14 Rate Blood Pressure 115/57 126/62 (mmHg) O2 Sat by Pulse 99 98 Oximetry 02/11/17 02/11/17 02/11/17 09:00 09:20 11:21 Temperature 97.3 F Pulse Rate 84 86 77 Respiratory 22 20 12 Rate Blood Pressure 110/71 111/59 (mmHg) O2 Sat by Pulse 97 99 100 Oximetry 02/11/17 02/11/17 02/11/17 11:25 11:30 11:45 Temperature Pulse Rate 71 73 67 Respiratory 12 18 14 Rate Blood Pressure 112/78 113/59 115/54 (mmHg) O2 Sat by Pulse 100 100 100 Oximetry 02/11/17 02/11/17 02/11/17 11:55 11:57 11:58 Temperature Pulse Rate 65 67 Respiratory Rate Blood Pressure 106/55 (mmHg) O2 Sat by Pulse 99 99 Oximetry 02/11/17 02/11/17 02/11/17 12:00 12:26 12:30 Temperature 97.3 F Pulse Rate 69 68 Respiratory 10 10 9 Rate Blood Pressure 106/55 100/61 (mmHg) O2 Sat by Pulse 97 96 Oximetry 02/11/17 02/11/17 02/11/17 13:00 13:47 13:49 Temperature Pulse Rate 68 68 Respiratory 12 12 Rate Blood Pressure 108/59 (mmHg) O2 Sat by Pulse 97 97 97 Oximetry Oxygen Devices in Use Now: Nasal Cannula Appearance: NAD Eyes: No Scleral Icterus, PERRLA Ears/Nose/Mouth/Throat: Mucous Membranes Moist Neck: NL Appearance and Movements; NL JVP, Trachea Midline Respiratory: Symmetrical Chest Expansion and Respiratory Effort, Clear to Auscultation Cardiovascular: NL Sounds; No Murmurs; No JVD, RRR Abdominal: - - soft, ND, TTP RUQ, +bs Lymphatic: No Cervical Adenopathy Extremities: No Edema, No Clubbing, Cyanosis Skin: No Rash or Ulcers Neurological: Alert and Oriented x 3 Result Diagrams: 02/11/17 05:50 02/11/17 05:50 Additional Lab and Data: Lab Results 02/10/17 02/10/17 02/10/17 Range/Units 10:45 10:45 10:45 WBC 14.6 H (3.5-10.8) 10^3/ul RBC 4.87 (4.0-5.4) 10^6/ul Hgb 14.7 (12.0-16.0) g/dl Hct 45 (35-47) % MCV 92 (80-97) fL MCH 30 (27-31) pg MCHC 33 (31-36) g/dl RDW 13 (10.5-15) % Plt Count 263 (150-450) 10^3/ul MPV 8 (7.4-10.4) um3 Neut % (Auto) 93.1 H (38-83) % Lymph % (Auto) 4.0 L (25-47) % [place] % (Auto) 2.6 (1-9) % Eos % (Auto) 0.1 (0-6) % Baso % (Auto) 0.2 (0-2) % Absolute Neuts (auto) 13.6 H (1.5-7.7) 10^3/ul Absolute Lymphs (auto) 0.6 L (1.0-4.8) 10^3/ul Absolute Monos (auto) 0.4 (0-0.8) 10^3/ul Absolute Eos (auto) 0 (0-0.6) 10^3/ul Absolute Basos (auto) 0 (0-0.2) 10^3/ul Absolute Nucleated RBC 0 10^3/ul Nucleated RBC % 0 INR (Anticoag Therapy) 0.88 L (0.89-1.11) APTT 32.1 (26.0-36.3) seconds D-Dimer, Quantitative < 200 (Less Than 230) ng/mL Sodium 134 (133-145) mmol/L Potassium 4.0 (3.5-5.0) mmol/L Chloride 98 L (101-111) mmol/L Carbon Dioxide 22 (22-32) mmol/L Anion Gap 14 H (2-11) mmol/L BUN 15 (6-24) mg/dL Creatinine 0.77 (0.51-0.95) mg/dL Est GFR ( Amer) 95.9 (>60) Est GFR (Non-Af Amer) 74.5 (>60) BUN/Creatinine Ratio 19.5 (8-20) Glucose 131 H (70-100) mg/dL Calcium 10.4 H (8.6-10.3) mg/dL Magnesium 1.9 (1.9-2.7) mg/dL Total Bilirubin 0.60 (0.2-1.0) mg/dL AST 25 (13-39) U/L ALT 25 (7-52) U/L Alkaline Phosphatase 73 (34-104) U/L Total Creatine Kinase 56 (10-223) U/L CK-MB (CK-2) 2.3 (0.6-6.3) ng/mL Troponin I 0.00 (<0.04) ng/mL C-Reactive Protein 2.24 (< 5.00) mg/L B-Natriuretic Peptide ( - 100) pg/mL Total Protein 8.5 (6.4-8.9) g/dL Albumin 4.6 (3.2-5.2) g/dL Globulin 3.9 (2-4) g/dL Albumin/Globulin Ratio 1.2 (1-3) Lipase 23 (11.0-82.0) U/L TSH Pending 02/10/17 Range/Units 10:45 WBC (3.5-10.8) 10^3/ul RBC (4.0-5.4) 10^6/ul Hgb (12.0-16.0) g/dl Hct (35-47) % MCV (80-97) fL MCH (27-31) pg MCHC (31-36) g/dl RDW (10.5-15) % Plt Count (150-450) 10^3/ul MPV (7.4-10.4) um3 Neut % (Auto) (38-83) % Lymph % (Auto) (25-47) % [place] % (Auto) (1-9) % Eos % (Auto) (0-6) % Baso % (Auto) (0-2) % Absolute Neuts (auto) (1.5-7.7) 10^3/ul Absolute Lymphs (auto) (1.0-4.8) 10^3/ul Absolute Monos (auto) (0-0.8) 10^3/ul Absolute Eos (auto) (0-0.6) 10^3/ul Absolute Basos (auto) (0-0.2) 10^3/ul Absolute Nucleated RBC 10^3/ul Nucleated RBC % INR (Anticoag Therapy) (0.89-1.11) APTT (26.0-36.3) seconds D-Dimer, Quantitative (Less Than 230) ng/mL Sodium (133-145) mmol/L Potassium (3.5-5.0) mmol/L Chloride (101-111) mmol/L Carbon Dioxide (22-32) mmol/L Anion Gap (2-11) mmol/L BUN (6-24) mg/dL Creatinine (0.51-0.95) mg/dL Est GFR ( Amer) (>60) Est GFR (Non-Af Amer) (>60) BUN/Creatinine Ratio (8-20) Glucose (70-100) mg/dL Calcium (8.6-10.3) mg/dL Magnesium (1.9-2.7) mg/dL Total Bilirubin (0.2-1.0) mg/dL AST (13-39) U/L ALT (7-52) U/L Alkaline Phosphatase (34-104) U/L Total Creatine Kinase (10-223) U/L CK-MB (CK-2) (0.6-6.3) ng/mL Troponin I (<0.04) ng/mL C-Reactive Protein (< 5.00) mg/L B-Natriuretic Peptide 63 ( - 100) pg/mL Total Protein (6.4-8.9) g/dL Albumin (3.2-5.2) g/dL Globulin (2-4) g/dL Albumin/Globulin Ratio (1-3) Lipase (11.0-82.0) U/L TSH Microbiology and Other Data: Microbiology 02/10/17 16:09 Nasal Screen MRSA (PCR)(FINN) - Final Nasal Mrsa Negative Assess/Plan/Problems-Billing Assessment: 66 yo F h/o asthma p/w acute cholecystitis s/p lap cholecystectomy 02/11 and new onset afib s/p chemical conversion to NSR - Patient Problems (1) Acute cholecystitis Comment: s/p surgery 02/11 IV zosyn while hospitalized plan on d/c off abx (2) Atrial fibrillation Comment: c/w diltiazem PO. Discharge dose to be determined tomorrow maintain telemetry (3) Asthma Comment: albuterol neb PRN stable (4) DVT prophylaxis Comment: HSQ
[2017-02-11] MEDS: Acetaminophen TAB* 325 MG PO PRN (14:11)
[2017-02-11] MEDS ORDERED: SEREVENT 50 MCG INH SCH (18:00)
[2017-02-11] MEDS ORDERED: MDI INH SCH (18:00)
[2017-02-11] MEDS ORDERED: MOMETASONE 220 MCG INH SCH (18:00)
[2017-02-11] MEDS: Heparin VIAL(*) 5000 UNITS/ML VIAL (FIVE THOUSAND) SUBCUT SCH (21:14)
--- NOTE | 2017-02-11 23:20 | OP ---
DATE OF OPERATION: 02/11/17 - ROOM #434 DATE OF : 46 SURGEON: Colt Holliday MD ASSISTANTS: JONES Aquino, and Delaney Olmos NP ANESTHESIOLOGIST: Dr. Batista. ANESTHESIA: General with local. PRE-OP DIAGNOSIS: Acute calculous cholecystitis. POST-OP DIAGNOSIS: Acute calculous cholecystitis. OPERATIVE PROCEDURE: Laparoscopic cholecystectomy. ESTIMATED BLOOD LOSS: Minimal. IV FLUID: 800 cc of crystalloid. SPECIMENS: Gallbladder, appendix. COMPLICATIONS: None. DRAINS: None. WOUND CLASSIFICATION: III. FINDINGS: Acute calculous cholecystitis with several large gallstones within the gallbladder. BRIEF HISTORY: Ms. Eva De La Torre is a 66-year-old woman who developed severe nausea, vomiting and abdominal pain radiating through to her back 36 hours ago and presented to the emergency room after she noted her heart was racing. She was found to be in a new onset atrial fibrillation, admitted to the medical service for monitoring and treatment of what appeared to be atrial fibrillation. She was started on IV heparin drip and medically treated and workup of her abdominal pain included a CAT scan of her chest, abdomen and pelvis which showed thickening of the gallbladder wall with several large gallstones. She had an elevated white blood cell count, tenderness in the right upper quadrant and a diagnosis of acute calculous cholecystitis was made. She was started on IV antibiotics. In the interim, she has been seen by Cardiology consultation. Cardiac echo showed no abnormality or cardiac thrombus and she converted to sinus rhythm after being started on an IV heparin drip as well as cardiac medications. In light of her persistent leukocytosis, tenderness in the right upper quadrant and CAT scan findings, she had been taken to the operating room for laparoscopic cholecystectomy for her acute calculous cholecystitis. The procedure was discussed with both the patient and her in detail and the risks to include but not limited to bleeding, infection, intra-abdominal abscess formation, injury to peritoneal and retroperitoneal structures, common bile duct injury requiring further reconstruction, possibility of an open procedure, possible drain placement, and the risk of anesthesia, and deep vein thrombosis were all explained. In addition, nonoperative treatment with IV antibiotics were discussed, but this was not recommended and they wished to proceed with a surgical approach. DESCRIPTION OF PROCEDURE: Written informed consent was obtained, antibiotics were administered, and the abdomen was marked with indelible ink. The patient was taken to the operating room and placed in the supine position. Sequential compression devices and a warming blanket were applied. Anesthesia was administered. The abdomen was prepped and draped in the usual sterile fashion. Time-out verification was completed. A small transverse incision was made just below the umbilicus, at the midline. The peritoneal cavity was entered under direct vision. A 12-mm blunt port was inserted and the abdomen was insufflated to 15 mmHg. An 11-mm epigastric port was placed and two 5-mm ports were placed in the right side of the abdominal wall. The gallbladder was identified. Its wall was thick and edematous and quite distended. The liver appeared to be unremarkable. We were unable to grasp the gallbladder with a grasper. Thus, an 18-gauge spinal needle was used to puncture the fundus of the gallbladder. We drained about 50 to 60 cc of thick green bile, allowing us to grasp the gallbladder and elevate it up over the liver bed. Once again, it was noted to be edematous. Down in the infundibular area, there were some omental adhesions which were taken down sharply to expose the infundibulum of the gallbladder. Next, through edematous thickened peritoneum, I was able to use a cautery and some blunt dissection to sweep the peritoneum down to identify the cystic duct as it entered the gallbladder. The cystic duct was not dilated. There was an enlarged lymph node which was maintained on the gallbladder itself. We also identified the cystic artery as it entered the gallbladder as well. I was able to mobilize a significant portion of the infundibular portion of the gallbladder off the liver bed using the critical view technique to assure myself of these 2 structures and only these 2 structures were entering the gallbladder, i. e. the cystic artery and cystic duct. Once this dissection was complete, I assured myself of the anatomy and the cystic duct and artery were triple clipped and divided. The gallbladder was then removed from the liver bed using a combination of cautery and blunt dissection. It was quite edematous. All consistent with acute cholecystitis throughout, but no evidence of gangrene. There appeared to be several large gallstones in the lumen itself. Once the gallbladder was removed from the liver bed, it was placed in an EndoCatch bag. The liver bed was irrigated. Hemostasis was assured. There was no evidence of bile leak. All clips appeared to be intact. The gallbladder was removed from the umbilical incision. Due to the edema in the gallbladder wall and the large stone size, it was necessary to increase the size of the fascial defect to remove the gallbladder itself. All ports were then removed under direct vision of the camera. There was no abdominal wall bleeding. The umbilical fascia was closed with interrupted 0 Polysorb suture. The skin at all 4 incisions were approximated with subcuticular 4- 0 Polysorb suture. Steri-Strips were applied. The patient tolerated the procedure well and was taken to the recovery room in stable condition. CC: [facility]; Arnoldo Bryson MD; Sam Grubbs MD* [id number]/[facility] #: [id number] MTDD
[2017-02-12] MEDS: Diltiazem TAB* 30 MG PO SCH ×2 (00:06→06:19)
[2017-02-12] MEDS: Piperac/Tazob 3.375 gm in NS* 3.375 GM/100 ML BAG IVPB SCH (05:55)
[2017-02-12 07:02] LABS: Hematocrit 31 % (35-47); Hemoglobin 10.4 g/dl (12.0-16.0); Mean Corpuscular HGB Conc 33 g/dl (31-36); Mean Corpuscular Hemoglobin 31 pg (27-31); Mean Corpuscular Volume 91 fL (80-97); Mean Platelet Volume 8 um3 (7.4-10.4); Red Blood Count 3.42 10^6/ul (4.0-5.4); Red Cell Distribution Width 13 % (10.5-15); White Blood Count 16.1 10^3/ul (3.5-10.8)
[2017-02-12 07:54] VITALS: BP 111/51
[2017-02-12] MEDS: Heparin VIAL(*) 5000 UNITS/ML VIAL (FIVE THOUSAND) SUBCUT SCH (09:07)
--- NOTE | 2017-02-12 17:59 | DS ---
DISCHARGE SUMMARY: DATE OF ADMISSION: 02/10/17 DATE OF DISCHARGE: 02/12/17 PRIMARY CARE PROVIDER: Dr. Grubbs SURGEON: Dr. Holliday PRIMARY DIAGNOSES: 1. Acute cholecystitis. 2. New atrial fibrillation. SECONDARY DIAGNOSES: Include: 1. Asthma. 2. Sjogren syndrome. 3. Raynaud's phenomenon. MEDICATIONS AT DISCHARGE: Include: 1. Mometasone 220 mcg inhaled daily. 2. Salmeterol 50 mcg daily. 3. Metoprolol succinate 25 mg daily to start tomorrow. 4. Hydrocodone bitartrate/acetaminophen 5/300 mg 1 to 2 tabs every 4 hours as needed for pain, dispensed 20 tabs. PERTINENT LABORATORY DATA: White blood cell count on discharge is 16.1. PROCEDURE PERFORMED DURING HOSPITAL STAY: Laparoscopic cholecystectomy performed by Dr. Holliday on 02/11/17 without complication. IMAGING DURING HOSPITAL STAY: CT abdomen and pelvis: Impression: Cholelithiasis with CT findings suggestive of mild acute cholecystitis. One of the calculi appeared impacted in the neck. Mild degenerative changes of the spine. HISTORY OF PRESENT ILLNESS AND HOSPITAL COURSE: This is a 66-year-old female with past medical history as outlined in the history of present illness on the day of admission presented to the hospital with right upper quadrant pain, including her back. In the emergency room, she was found to be in atrial fibrillation with rapid ventricular response. Heart rate was recorded to 141 beats per minute. She declined DC cardioversion by Cardiology Service. She was admitted to the ICU and placed on a heparin drip as well as a diltiazem drip. She chemically cardioverted overnight. Cardizem was discontinued, transitioned to oral Cardizem. Heparin was discontinued greater than 6 hours prior to surgery. The patient was brought the following morning with Dr. Holliday to the OR, received laparoscopic cholecystectomy without complications. She tolerated the procedure well. She required very minimal pain medication status post the procedure. She was monitored on telemetry and had no further events of atrial fibrillation, although did have some ectopy the day following the surgery. On the day of discharge, she was tolerating a regular diet. She was maintained on Zosyn during the course of the hospital stay, to be discontinued on the day of discharge without continuing oral antibiotics on discharge after discussion with Dr. Holliday from Surgery. On the day of discharge, patient was sitting up, interactive, pleasant, in no apparent distress. She had a regular rate and rhythm. Her lungs were clear to auscultation. Her abdomen was soft, nontender, nondistended except for over the incision sites. She has 4 incisions sites with mild erythema surrounding. They were clean, dry and intact with Steri-Strips covering. Her lower extremities were warm with review without clubbing, cyanosis, or edema. At followup, please; 1. Consider repeating CBC to monitor for resolution of leukocytosis. Discharge white blood cell count 16.1. 2. Follow up blood pressure and heart rate, on metoprolol XL 25 mg. Consider discontinuation if no further evidence of atrial fibrillation. 3. Gallbladder pathology pending at the time of discharge. Please follow for completion. 4. No specific labs or vitals that need followup. Reasons to return to the hospital including, but not limited to, recurrent or worsening symptoms including chest pain, shortness of breath, palpitations, nausea, vomiting, lightheadedness, loss of consciousness, near loss of consciousness, fever, chills or night sweats, bleeding from any source, inability to obtain or tolerate medications were discussed with the patient; she acknowledged understanding. TIME SPENT: Greater than 45 minutes was spent on discharge of this patient, greater than half was spent [id number] with the patient. CC: Dr. Grubbs; Dr. Holliday * [id number]/[facility] #: [id number] MTDD
== END 2017-02-12 10:30 | disposition home or self-care (01) | DRG 419 ==
LOC: ED 09:55 → ICU 13:34 → MEDTELE 02-11 15:12
PROVIDERS: ADMIT Internal Medicine; ATTEND Internal Medicine
PROC: 0FT44ZZ Resection of Gallbladder, Percutaneous Endoscopic Approach (ICD-10-PCS; principal; 2017-02-11 09:00)
DX: K80.00 Calculus of gallbladder with acute cholecystitis without obstruction (principal); I48.91 Unspecified atrial fibrillation; J45.909 Unspecified asthma, uncomplicated; M35.00 Sjogren syndrome, unspecified; R40.2412 Glasgow coma scale score 13-15, at arrival to emergency department; I73.00 Raynaud's syndrome without gangrene; Z80.8 Family history of malignant neoplasm of other organs or systems; Z83.79 Family history of other diseases of the digestive system; Z82.49 Family history of ischemic heart disease and other diseases of the circulatory system; Z72.89 Other problems related to lifestyle
CPT/HCPCS: 36415; 71010; 74177; 80048; 80053; 80061; 81003; 81015; 82550; 82553; 82947; 83605; 83690; 83735; 83880; 84443; 84484; 85025; 85379; 85610; 85730; 86140; 86803; 87040; 87641; 88304; 93005; 93306; 94760; A9270-GY; J0282; J0780; J1100; J1644; J2250; J2270; J2310; J2405; J2543; J2704; J3010; J3480; Q9967